=== PATIENT | female | born 1990 | race Caucasian/White ===

== ENCOUNTER 2018-03-17 17:34 | Inpatient (IN) ==
[2018-03-17] MEDS ORDERED: Acetaminophen 325 MG Tablet PO PRN (21:25)
[2018-03-17] MEDS ORDERED: Aluminum/Magnesium/Simethacone Susp 30 ML UDC PO PRN (21:25)
[2018-03-17] MEDS ORDERED: LORazepam 1 MG Tablet PO PRN (21:29)
[2018-03-17 22:36] VITALS: O2SAT 97
[2018-03-18 05:46] VITALS: BP 146/77; PULSE 95; RESP 17; TEMP 98.1
[2018-03-18 06:24] LABS: Anion Gap 9 meq/L (5-15); Blood Urea Nitrogen 13 mg/dL (7-18); Calcium 8.6 mg/dL (8.5-10.1); Carbon Dioxide 25.4 meq/L (21.0-32.0); Chloride 106 meq/L (98-107); Glomerular Filtration Rate Greater Than 89 mL/min (>89); Glucose,Random 95 mg/dL (74-106); Potassium 3.8 meq/L (3.5-5.1); Sodium 140 meq/L (136-145)
[2018-03-18 06:25] LABS: Cholesterol 194 mg/dL (120-200); Triglycerides 154 mg/dL (42-150)
[2018-03-18 06:35] LABS: Chol/HDL Ratio 5.49 Ratio; HDL Cholesterol 35.3 mg/dL (40.0-60.0); LDL Cholesterol,Calculated 128 mg/dL (0-99)
--- NOTE | 2018-03-18 11:47 | P.HPPSY ---
Provisional Diagnosis Admission Date: March 17, 2018 20:30 Reydon I.: 1. Major depressive disorder, recurrent, moderate Rule-out adjustment disorder with depressed mood Rule-out bipolar depression Rule-out chronic depression Rule-out depression due to [facility] (e.g. thyroid derangement) Reydon II.: Deferred Competence Certification of Person's Competence To Provide Express and Informed Consent I have personally examined Allyson Bueno, a person being served at [facility] on, March 18, 2018 1147. Express and informed consent means consent voluntarily given in writing, by a competent person, after sufficient explanation and disclosure of the subject matter involved to enable the person to make a knowing and willful decision without any element of force, fraud, deceit, duress, or other form of constraint or coercion. This person is 18 years of age or older, is not now known to be incompetent to consent to treatment with a guardian advocate, and does not have a health care surrogate or proxy currently making medical treatment decisions. I have found this person to be one of the following: [] Competent to provide express and informed consent, as defined above, for voluntary admission to this facility and is competent to provide express and informed consent for treatment. He/she has the consistent capacity to make well reasoned, willful, and knowing decisions concerning his or her medical or mental health treatment. The person fully and consistently understands the purpose of the admission for examination/placement and is fully capable of personally exercising all rights [place] [] Incompetent to provide express and informed consent to voluntary admission, and this is incompetent to provide express and informed consent to treatment. The person must be transferred to involuntary status and a petition for a guardian advocate filed with the Circuit Court. [X] Refusing to provide express and informed consent to voluntary admission but is competent to provide express and informed consent for treatment. The person must be discharged or transferred to involuntary status. Form shall be completed within 24 hours of a person's arrival at the receiving facility and filed in the clinical record of each person: 1. Admitted on a voluntary basis 2. Permitted to provide express and informed consent to his/her own treatment 3. Allowed to transfer from involuntary to voluntary status 4. Prior to permitting a person to consent to his or her own treatment after having been previously found incompetent to consent to treatment. History of Present Illness Capacity: Has capacity Chief Complaint: Depression History of Present Illness: Ms. Bueno is a 27-year-old female with no reported previous psychiatric diagnoses who presents in transfer from [facility] under a Nielson act. Documentation from outside hospital reviewed. Patient complained of depression and suicidal ideation without plan to ED provider at outside hospital. Reviewing our electronic medical record, I see no previous psychiatric contact within our system. Patient seen and examined with nurse. Chart reviewed. Case discussed with nursing staff. No behavioral issues noted while the patient has been under observation on the inpatient unit, no suicidality or homicidality. Case discussed with counselor who has obtained reassuring collateral information from the patient's lifelong friend. Counselor relates that the patient can go to stay with a friend on discharge and the friend has no concerns about the patient being a risk of harm to self or others. On my examination today, the patient presents with a bright, euthymic seeming affect. She tells me that she has felt depressed since she was a child but has managed it with nonpharmacologic means for the most part until about 6 months ago. She says that she has been feeling somewhat more depressed since then because her brother was jailed and she has noted the outpouring of support from brother's father (they do not share a father). This supportive relationship stands in contrast to the very strained relationship between patient and her own father, and the patient as a result has been feeling depressed. She endorses associated hyperphagia, sleep disturbance (sometimes too little, sometimes too much), low energy, poor concentration, lack of motivation. She does admit to some occasional passive thoughts of but denies any suicidal or homicidal ideation, intent or plan. She says that she wants to live for her family and also for her job. 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 She does complain of some comorbid anxiety with her low mood. I can elicit no hypomanic or manic symptoms presently. She does describe possible episodes of hypomania in her teenage years, although this is far from clear. She denies ever having experienced audiovisual hallucinations and has no hallucinations now. I can elicit no delusional material. The remainder of the psychiatric ROS is negative. No acute physical complaints. The patient is requesting discharge from the inpatient psychiatric unit today. Past psychiatric history: The patient denies a history of psychiatric diagnosis. She is not presently under the care of a psychiatrist. She denies any history of psychiatric admissions. She denies any history of suicide attempts. She denies any history of nonsuicidal self-injurious behavior. Family history: The patient reports an extensive family history of bipolar disorder on her father's side of the family. She denies any family history of suicide. Chemical dependency history: The patient denies any abuse of drugs or alcohol. Social history: The patient lives with her mother. She is single with no children. She is high school educated. 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 She herself has several pets including cats, a dog, a turtle and a fish. She denies any history. She denies any legal history. Denies any access to guns or firearms. Denies any methodist or spiritual beliefs. Denies any history of abuse or mistreatment. Past medical history: Includes a history of asthma. Medications: Patient takes Ventolin and Advair. Allergies: No known allergies. Collateral information: As noted above, counselor has reached out to patient's friend. Patient declines to allow us to reach out to her mother noting that her mother was not even aware that the patient has been hospitalized, and the patient prefers to keep it that way. - Inpatient Certification Plans for Post Hospital Care: Home Review of Systems All other systems reviewed negative except as stated in [facility] - History History Provided By: Patient - Tobacco History Second Hand Smoke Exposure: No Smoking Status: Never smoker - Alcohol History How Often Do You Have a Drink Containing Alcohol: Never - Substance Use History Substance History: No History of Abuse - Travel History Recent Travel in the [place] Within the Last 8 Weeks: No Recent Travel Out of the Country Within the Last 8 Weeks: No Quality Measures - Psychiatric History Psychological trauma history: See above - Patient Strengths Patient's strengths (minimum of 2): Attending to basic needs. Verbally fluent. Medications and Allergies Active Medications: Active Medications Acetaminophen (Tylenol) 650 mg PO Q4H PRN PRN Reason: Pain 1-5 or Temp >101F Al Hydrox/Mg Hydrox/Simethicone (Mag-Al Plus Susp Liq) 30 ml PO Q6H PRN PRN Reason: DYSPEPSIA Al Hydroxide/Mg Hydroxide (Milk Of Magnesia Liq) 30 ml PO DAILY PRN PRN Reason: CONSTIPATION Albuterol (Ventolin Hfa Inh) 2 puff INH DAILY PRN PRN Reason: SHORTNESS OF BREATH Last Admin: 03/18/18 05:24 Dose: 2 puff Diphenhydramine HCl (Benadryl) 50 mg PO Q6H PRN PRN Reason: For mild anxiety and/or EPS Diphenhydramine HCl (Benadryl Inj) 50 mg IM Q6H PRN PRN Reason: For mild anxiety and/or EPS Lorazepam (Ativan) 1 mg PO Q6H PRN PRN Reason: MODERATE TO SEVERE ANXIETY Lorazepam (Ativan Inj) 1 mg IM Q6H PRN PRN Reason: MODERATE TO SEVERE ANXIETY Allergies Allergy/AdvReac Type Severity Reaction Status Date / Time No Known Allergies Allergy Unverified 03/17/18 21:07 Results - Labs CBC & Chem 7: 03/18/18 05:36 Labs: Laboratory Results - last 24 hr 03/18/18 03/18/18 05:36 05:36 Sodium 140 Potassium 3.8 Chloride 106 Carbon Dioxide 25.4 Anion Gap 9 BUN 13 Creatinine 0.75 Estimated GFR Greater than 89 Random Glucose 95 Calcium 8.6 Triglycerides 154 H Cholesterol 194 LDL Cholesterol, Calc 128 H HDL Cholesterol 35.3 L Cholesterol/HDL Ratio 5.49 TSH 4.460 H Beta HCG, Quant Less than 1 Laboratories from outside hospital reviewed: CBC reveals mildly elevated platelets at 441. White blood cell count and hemoglobin within normal limits. CMP reveals mild hyperglycemia in a nonfasting sample. Renal and hepatic function appear to be within normal limits. Urinalysis results reviewed. Urine toxicology negative. Alcohol level undetectable. Tylenol and salicylate level undetectable. TSH was within normal limits at outside hospital but slightly elevated here. Exam Vital signs: Vital Signs 03/17/18 22:35 03/18/18 05:45 Temperature 98.6 F 98.1 F Pulse Rate 111 H 95 H Respiratory Rate 18 17 Blood Pressure 150/98 H 146/77 H Pulse Oximetry 97 97 Intake & Output 03/17/18 03/18/18 03/18/18 18:59 06:59 18:59 Weight 88.4 kg Other: Weight On Admission 88.4 kg Narrative: Physical examination was completed by ED provider. On my examination today, the patient appears to be in no acute physical distress. No motor abnormalities noted. Labs and vital signs reviewed. Mental Status Examination Appearance: Appropriate Consciousness: Alert Orientation: x4 Motor Activity: Other (No motor abnormalities noted) Speech: Unremarkable Language: Adequate Fund of Knowledge: Adequate Attention and Concentration: Adequate Memory: Unremarkable (Grossly intact on clinical exam) Mood: Other (Somewhat depressed) Affect: Appropriate (Full and reactive) Thought Process & Associations: Intact, Logical, Goal directed, Linear Thought Content: Appropriate Hallucination Type: None Delusion Type: None Suicidal Ideation: No Suicidal Plan: No Suicidal Intention: No Homicidal Ideation: No Homicidal Plan: No Homicidal Intention: No Insight: Adequate Judgment: Adequate Assessment and Plan - Assessment (1) Major depressive disorder, recurrent, moderate Code(s): F33.1 - Major depressive disorder, recurrent, moderate Status: Acute - Plan Plan: 27-year-old female with psychiatric history as detailed above who presents in transfer from outside hospital under a Nielson act. On my examination today, the patient does describe symptoms of depression stretching back about 6 months. Differential diagnosis is as noted above. The severity of her depression seems moderate at worst, and affective reactivity is preserved. She is presently denying suicidal or homicidal ideation. There is no evidence of self-care deficit as a consequence of her mental illness. We have obtained reassuring collateral information from her friend. Suicide and violence risk assessment suggest lower imminent risk. Synthesizing these data and based on the available information, I child center assistant that the patient does not meet the Nielson act criteria and does not meet criteria for involuntary psychiatric hospitalization at this time. She is requesting discharge from the inpatient psychiatric unit today. I have no basis to retain her over her objection. I did recommend that she consider remaining voluntarily to allow for initiation of psychotropic medication, but she has declined. Patient will be discharged home today. We will bolster patient's protective factors by referring her for outpatient mental health services. Patient is also to follow up with primary care, and I have ordered follow-up thyroid function testing to rule out thyroid derangement as a cause of patient's mood symptoms. I have counseled the patient to return to the psychiatric emergency room for any concerning psychiatric symptoms as part of a general safety plan. I have provided the patient with no prescriptions on discharge. This note serves also as my discharge summary. Justification for Continued Inpatient Stay: N/A.
[2018-03-18 16:04] LABS: Hemoglobin A1c 5.6 % (4.3-6.0)
--- NOTE | 2018-03-18 22:42 | ECG ---
Date Performed: 03/18/2018 Time Performed: 13:38:58 PTAGE: 27 years EKG: Sinus rhythm WITH SINUS ARRHYTHMIA NORMAL ECG NO PREVIOUS TRACING DOCTOR: Ela Harris Interpretating Date/Time 03/18/2018 22:40:54
--- NOTE | 2018-03-19 15:16 | P.TTN ---
- Patient Problems Problems: 1. Discharge planning 2. Medication compliance 3. Knowledge deficit 4. Lack of coping skills - Progress Toward Goals Provider Present: Dr. Grover Ramos (03/18 she is anticipated discharge if re- assuring safety plan with family can be arranged with oupatient follow up) Psychiatric Counselors Present: Louise Zazueta LCSW Psychiatric Therapist Input: patient has [facility] and is able to get services such as therapy and med management from psychiatrist, she is overly anxious and panics and has trouble calming self and would like med support to calm self Group Spec/RT/OT/[place] Present: Leanna Fernandes, NIKKIE (new to Leanna from weekend) - Documentation Teaching Recipient: Patient
== END 2018-03-18 16:11 | disposition home or self-care (01) ==
LOC: EDBD → H260 20:30
PROVIDERS: ADMIT Psychiatry & Neurology Psychiatry; ATTEND Psychiatry & Neurology Psychiatry
DX: F33.1 Major depressive disorder, recurrent, moderate